=== PATIENT | female | born 1955 | race Caucasian/White ===

== ENCOUNTER → 2016-07-13 | Outpatient (CLI) | payer BC ==
[~2016-07-13] MED LIST: ASPIR-LOW81 MG PO; AUGMENTIN500 MG PO; CRESTOR40 MG PO; IMDUR30 MG PO; LISINOPRIL5 MG PO; LOPRESSOR25 MG PO; NITROSTAT0.4 MG SL; NORCO 5/3251 TABLET PO; PLAVIX75 MG PO; WELCHOL625 MG PO; ZANTAC300 MG PO; ZETIA10 MG PO
== END | disposition home or self-care (01) ==
LOC: CDC 11:04
DX: Z01.810 Encounter for preprocedural cardiovascular examination (principal); S61.402A Unspecified open wound of left hand, initial encounter; S66.301A Unspecified injury of extensor muscle, fascia and tendon of left index finger at wrist and hand level, initial encounter; R94.31 Abnormal electrocardiogram [ECG] [EKG]; I25.2 Old myocardial infarction
CPT/HCPCS: 93000

== ENCOUNTER 2016-07-21 12:42 | Day surgery (SDC) | payer BC ==
[~2016-07-21] VITALS: Ht 160 cm; Wt 97.7 kg
[2016-07-21 13:15] VITALS: BP 130/72
[2016-07-21 14:47] LABS: POINT-OF-CARE METER ID UU14174212
[2016-07-21 16:01] LABS: POINT-OF-CARE METER ID UU13113675
[2016-07-21 16:37] VITALS: BP 148/83
== END 2016-07-21 17:45 | disposition home or self-care (01) ==
LOC: SDC 12:42
PROVIDERS: Orthopaedic Surgery Hand Surgery
DX: S61.432A Puncture wound without foreign body of left hand, initial encounter (principal); W54.0XXA Bitten by dog, initial encounter; I10 Essential (primary) hypertension; Z79.01 Long term (current) use of anticoagulants; Z83.3 Family history of diabetes mellitus; Z82.49 Family history of ischemic heart disease and other diseases of the circulatory system; Z80.9 Family history of malignant neoplasm, unspecified; Z88.2 Allergy status to sulfonamides; Z88.1 Allergy status to other antibiotic agents; Z88.6 Allergy status to analgesic agent
CPT/HCPCS: 82948; J0131; J0690; J1100; J1170; J2250; J2405; J3010; S0020

== ENCOUNTER → 2016-09-10 | Outpatient (CLI) | payer BC ==
[~2016-09-10] VITALS: Ht 160 cm; Wt 95.3 kg
[2016-09-10 15:13] LABS: HEMATOCRIT 42.1 % (36.0-46.0); MCH 29.3 PG (29.0-34.0); MCHC 32.5 G/DL (30.0-36.0); MEAN PLAT.VOLUME 10.4 uM^3 (9.5-12.4); PLATELET COUNT 196 K/uL (156-360); RBC DIS.WIDTH-SD 42.8 % (39-53); RED BLOOD COUNT 4.68 M/uL (3.80-5.20); WHITE BLOOD COUNT 5.4 K/uL (4.1-10.2)
[2016-09-10 15:31] LABS: PROTHROMBIN TIME 10.6 (9.2-11.2); PTT 36.6 (25-32)
== END | disposition home or self-care (01) ==
LOC: AMB 14:30
PROVIDERS: Internal Medicine Pulmonary Disease
PROC: 0BJ08ZZ Inspection of Tracheobronchial Tree, Via Natural or Artificial Opening Endoscopic (ICD-10-PCS; principal; 2016-09-10)
DX: R06.1 Stridor (principal); J45.909 Unspecified asthma, uncomplicated
CPT/HCPCS: 85027; 85610; 85730; J2175; J2250; J2550; J3010